=== PATIENT | male | born 1970 | race Caucasian/White ===

== ENCOUNTER 2017-02-16 07:13 | Inpatient (IN) | payer OTHER ==
[~2017-02-16] VITALS: Ht 185.4 cm; Wt 102.1 kg
--- NOTE | 2017-02-16 10:13 | NUR ---
Intake Assessment; Patient is a 47 year old male, AOX4, presented to [facility] to detoxify from ETOH. Patient is from [place], [place] and arrived in intake office at approximately 0900. He is the primary source of information. Patient is admitted under the care of Dr. Haney to room 320. Patient appears anxious, with flushed face, tremors to touch. Patients vital signs are as follows; BP 140/93, Temp 98.0, respirations 18, Spo2 96%. Patient denies pain at the moment but verbalized that he currently experience intermittent nausea and stomach cramps. Educated patient regarding hospital/unit protocols and policies, verbalized understanding. Further assessment and interview to be done when patient is up on the unit.
[2017-02-16 11:00] VITALS: BP 140/93
[2017-02-16 11:09] LABS: *AMPHETAMINE, URINE NEGATIVE (NEGATIVE); *BARBITURATE, URINE NEGATIVE (NEGATIVE); *CANNABINOID, URINE NEGATIVE (NEGATIVE); *COCCAINE, URINE NEGATIVE (NEGATIVE); *OPIATE, URINE NEGATIVE (NEGATIVE); *PHENCYCLIDINE SCREEN,URINE NEGATIVE (NEGATIVE)
[2017-02-16] MEDS ORDERED: BENA20TA2 PO (11:16)
[2017-02-16] MEDS ORDERED: MULT-1045 PO (11:16)
[2017-02-16] MEDS ORDERED: AMLO5TAB2 PO (11:16)
[2017-02-16] MEDS ORDERED: DISU500T3 PO (11:16)
[2017-02-16 12:00] VITALS: BP 138/92
[2017-02-16 12:05] LABS: BASOPHILS # (AUTO) 0.1 K/uL (0.0-8.0); BASOPHILS % (AUTO) 1.1 % (0.0-2.0); EOSINOPHILS # (AUTO) 0.1 K/uL (0.0-0.7); EOSINOPHILS % (AUTO) 1.9 % (0.0-7.0); HEMATOCRIT 46.7 % (40-50); HEMOGLOBIN 15.6 G/DL (14.0-18.0); LYMPHOCYTES # (AUTO) 1.2 K/UL (0.8-4.8); MEAN CORPUSCULAR HGB CONC 33 g/dL (32.0-37.0); MEAN CORPUSCULAR VOLUME 92.6 FL (82.0-92.0); MONOCYTES # (AUTO) 0.4 K/UL (0.1-1.30); MONOCYTES % (AUTO) 8.7 % (0.0-11.0); NEUTROPHILS # (AUTO) 3.3 K/UL (1.8-8.9); NEUTROPHILS % (AUTO) 64.3 % (38.5-71.5); PLATELET COUNT (AUTO) 174 K/UL (150-450); RED BLOOD CELL COUNT(AUTO) 5.04 MIL/UL (4.7-6.1); WHITE BLOOD COUNT (AUTO) 5.1 K/UL (4.0-11.2)
--- NOTE | 2017-02-16 12:14 | NUR ---
Admission note; Patient is a 47 year old male, AOX4, presented to [facility] to detoxify from ETOH. Patient is from [place], [place] and arrived in intake office at approximately 0900. He is the primary source of information. Patient is admitted under the care of Dr. Haney to room 320. Patient appears anxious, with flushed face, tremors to touch. Patients vital signs are as follows; BP 140/93, Temp 98.0, respirations 18, Spo2 96%. Patient denies pain at the moment but verbalized that he currently experience intermittent nausea and stomach cramps. Educated patient regarding hospital/unit protocols and policies, verbalized understanding. Patient denies any allergies or history of seizures. Discussed substance use history. Patient first started drinking alcohol when he was 16 years old, progressed to daily use when he was 28 years old. He struggled with multiple attempts to sobriety. Patient stated that he was sober for 5 months (2015-early 2016). At this rate he has been drinking for the last 7 months, consuming 750ml of vodka, last consumed today 0700 consumed 300ml of vodka. Discussed medical and psych history. Patient reported history of hypertension, Hepatitis C. Upon skin assessment, psoriasis like red rashes noted on patients lower abdomen and lower extremities. Patient stated he was never diagnosed with psoriasis and states that rashes usually appears with alcohol use. He has never been to detox center /residential treatment before. Patients current CIWA is 5. Patient PCP is Dr. Lee Aleman. Detailed report given to Dr. Lyndon MD to evaluate patient including patients skin. Safety measures in place. Will continue to monitor patient.
--- NOTE | 2017-02-16 12:26 | NUR ---
PRN medication; Patient is complaining of stomach cramps, PRN Bentyl 20mg PO given per MD order. Will continue to monitor patient for effectiveness of medication.
[2017-02-16 12:30] LABS: BILIRUBIN,TOTAL 0.5 mg/dL (0.2-1.0); CREATININE 0.8 mg/dL (0.6-1.3); MAGNESIUM 1.8 mg/dL (1.8-2.4); POTASSIUM 4.4 mmol/L (3.5-5.1); TOTAL PROTEIN, SERUM 8.2 g/dL (6.4-8.2)
--- NOTE | 2017-02-16 13:26 | NUR ---
Re-assessment; Patient stated improvement of stomach cramps. PRN medication is effective.
--- NOTE | 2017-02-16 14:42 | NUR ---
PRN medications; Patient's current CIWA score is 7 manifested by increase in anxiety and agitation, hot and cold sweats, muscle aches, tremors to touch. PRN Ativan 1mg PO given for CIWA >5 and Clonidine 0.1mg PO given anxiety, agitation and bp of 142/101. Will continue to monitor patient.
--- NOTE | 2017-02-16 15:42 | NUR ---
Re-assessment; Patient's current CIWA score is 5 manifested by anxiety, sweats and tremors to touch. PRN medication is effective.
[2017-02-16 16:00] VITALS: BP 123/93
--- NOTE | 2017-02-16 18:07 | NUR ---
End of shift note; Patient is AOX4. Patient is a 47 year old male admitted today for ETOH withdrawals. Patient to start 5 day Ativan taper tomorrow morning. Patient started to show signs and symptoms of withdrawals, PRN Ativan, Bentyl and Clonidine were given all noted to be effective. All safety measures secured. Met all needs.
--- NOTE | 2017-02-16 19:06 | NUR ---
PRN medication; Patient's appears very anxious, showing signs and symptoms of withdrawals manifested by Agitation, tremors, hot and cold sweats, muscle aches. PRN Ativan 1mg PO PRN given for CIWA of 7. Will endorse to night nurse for re-assessment. All safety measures secured.
--- NOTE | 2017-02-16 19:07 | NUR ---
Start of shift note Received report from day shift nurse. Pt is a 47 yo male, A+OX4, presenting to [facility] for ETOH dependence. Pt has NKA, is on Full Code status, and on Regular diet. Pt is on Fall and Seizure precautions. Pt has HX of HTN, Hep C, and Abd. rash. Pt is to start 5 day Ativan taper tomorrow. No s/s of distress noted at this time. Respirations even and unlabored. Will continue to monitor.
[2017-02-16 20:07] VITALS: BP 147/97
[2017-02-17 00:21] VITALS: BP 143/92
--- NOTE | 2017-02-17 02:44 | NUR ---
PRN Ativan 1 mg and Zofran Pt c/o anxiety with CIWA: 7 and nausea and requested for PRN Ativan and Zofran. Medications given and tolerated well. Will reassess within 1 HR. Will continue to monitor.
--- NOTE | 2017-02-17 03:40 | NUR ---
PRN Ativan 1 MG and Zofran Reassessment Medications effective. Pt is resting well in bed. No s/s of ASE/distress noted at this time. Respirations even and unlabored. Will continue to monitor.
[2017-02-17 04:47] VITALS: BP 139/91
--- NOTE | 2017-02-17 06:52 | NUR ---
End of shift note Pt is a 47 yo male, A+OX4, presenting to [facility] for ETOH dependence. Pt has NKA, is on Full Code status, and on Regular diet. Pt is on Fall and Seizure precautions. Pt has HX of HTN, Hep C, and Abd. rash. Pt is to start 5 day Ativan taper today. Pt was given PRN Ativan 1mg and PRN Zofran @0244. Last CIWA: 4 @0400. No s/s of distress noted at this time. Respirations even and unlabored. Will endorse to day shift nurse. Addendum: 02/17/17 at 0713 by MERE STATON LVN Pt slept for a total of 8 HRS.
--- NOTE | 2017-02-17 07:30 | NUR ---
Start of shift note; Received report from night nurse. Patient is a 47 year old male admitted today for ETOH withdrawals. Patient to start 5 day Ativan taper today. Patient reported history hypertension. Patient slept for 8 hours. Patient is on fall and seizure precaution. Bed in lowest position, call light within reach. Will continue to monitor patient.
[2017-02-17 08:00] VITALS: BP 142/98
[2017-02-17 12:00] VITALS: BP 141/88
--- NOTE | 2017-02-17 14:49 | NUR ---
PRN medication; Patient's BP noted to be elevated, 141/101. PRN Clonidine 0.1mg PO given to prevent further increase in BP. Will continue to monitor patient for effectiveness of medication.
--- NOTE | 2017-02-17 15:49 | NUR ---
Re-assessment; Patient's current BP went down to 139/90, PRN Clonidine noted to be effective.
[2017-02-17 16:00] VITALS: BP 139/90
--- NOTE | 2017-02-17 18:12 | NUR ---
End of shift note; Patient is AOX4. Patient is a 47 year old male admitted today for ETOH withdrawals. Patient was started on a 5 day modified Ativan taper, no adverse reactions noted. All safety measures secured. Patient remained compliant with treatment plan and medication regime. Medications were effective in reducing withdrawal symptoms. Patient participated in group therapies and activities. Met all needs.
--- NOTE | 2017-02-17 19:10 | NUR ---
Start of shift note Received report from day shift nurse. Pt is a 47 yo male, A+OX4, presenting to [facility] for ETOH dependence. Pt has NKA, is on Full Code status, and on Regular diet. Pt is on Fall and Seizure precautions. Pt has HX of HTN, Hep C, and Abd. rash. Pt is on 5 day Ativan taper, tolerated well. No s/s of distress noted at this time. Respirations even and unlabored. Will continue to monitor.
[2017-02-17 20:07] VITALS: BP 136/94
--- NOTE | 2017-02-17 22:42 | NUR ---
PRN Motrin and Benadryl Pt c/o toothache and inability to sleep and requested for PRN Motrin and Benadryl. Medications given and tolerated well. Will reassess within 1 HR. Will continue to monitor.
--- NOTE | 2017-02-17 23:40 | NUR ---
PRN Motrin and Benadryl Reassessment Medications effective. Pt is resting well in bed. No s/s of ASE/distress noted at this time. Respirations even and unlabored. Will continue to monitor.
[2017-02-18] VITALS (7 sets, daily range): BP systolic 101–149; BP diastolic 51–105
--- NOTE | 2017-02-18 07:00 | NUR ---
End of shift note Pt is a 47 yo male, A+OX4, presenting to [facility] for ETOH dependence. Pt has NKA, is on Full Code status, and on Regular diet. Pt is on Fall and Seizure precautions. Pt has HX of HTN, Hep C, and Abd. rash. Pt is on 5 day Ativan taper, tolerated well. Pt was given PRN Motrin and Benadryl @2242. Pt slept for a total of 9 HRS. Last CIWA: 2 @0400. No s/s of distress noted at this time. Respirations even and unlabored. Will endorse to day shift nurse.
--- NOTE | 2017-02-18 07:11 | NUR ---
Start of shift note SBAR report rcv'd. Pt was admitted for ETOH dependence. Pt has a PMHx of HTN, hep C and a rash on his abdomen and thigh, with hydrocortisone for treatment. Pt is a full code, on a regular diet, and denies any allergies. Pt is on day 2 of a 5 day ativan taper. Pt is currently resting in bed, pt is on fall and seizure precautions. Pt has no complaints at this time. Will continue to monitor pt. All needs addressed at this time.
[2017-02-18 08:17] LABS: BILIRUBIN,DIRECT 0.2 mg/dL (0.0-0.2); BILIRUBIN,TOTAL 0.8 mg/dL (0.2-1.0); TOTAL PROTEIN, SERUM 7.5 g/dL (6.4-8.2)
--- NOTE | 2017-02-18 09:00 | NUR ---
Medication refusal Pt refused ativan, stated "I don't feel like I need it and I want to go home". Dr Lang is aware. Pt has a CIWA of 1.
--- NOTE | 2017-02-18 13:35 | NUR ---
PRN administration Pt c/o tooth pain 11/14, administered motrin per MD order. Will continue to monitor pt.
--- NOTE | 2017-02-18 14:13 | NUR ---
PRN administration Pt c/o anxiety r/t his discharge, administered PRN vistaril, encouraged pt to ambulate and verbalize his feelings. All other needs addressed. Will continue to monitor pt.
--- NOTE | 2017-02-18 14:35 | NUR ---
Reassessment Pt states that his pain is 1/10 and states that he is comfortable, no further complaints at this time. Will continue to monitor pt.
--- NOTE | 2017-02-18 15:13 | NUR ---
Reassessment Pt states that he feels less anxious, pt states "that medication worked really well, I feel better". Will continue to monitor pt.
[2017-02-18] MEDS ORDERED: GABA-534 PO (16:56)
[2017-02-18] MEDS ORDERED: SERT50TA12 PO (16:56)
[2017-02-18] MEDS ORDERED: HYDR-3895 PO (16:56)
[2017-02-18] MEDS ORDERED: DIPH50CA37 PO (16:56)
[2017-02-18] MEDS ORDERED: AMLO10TA2 PO (16:56)
--- NOTE | 2017-02-18 19:11 | NUR ---
End of shift note Pt was admitted for ETOH dependence. Pt is a full code, on a regular diet, and denies any allergies. Pt has a PMHx of HTN, hep C and a rash on his abdomen and thigh, with hydrocortisone for treatment. Pt's ativan taper was d'c'd per pt request. Pt had two PRN medications, vistaril and motrin, during the shift with effectiveness. Pt states that he feels ready for discharge today. Pt ate 100% of meals, drank 2560ml of fluids, had 4 voids and 1 BM during the shift. All needs addressed at this time. Will endorse SBAR to oncoming shift.
--- NOTE | 2017-02-18 19:15 | NUR ---
Start of Shift Patient Received. Patient is in bed, awake, alert and verbally responsive. Breathing even and non labored. Patient noted to be restless and is verbalizing increased anxiety. Patient is a 47 year old male that was admitted on 02/16/17 for ETOH Dependence and received a 5 day Ativan. Taper has been discontinued and patient is set for discharge tomorrow 02/19/17 to go home. Patient verbalizes no known allergies, wishes to be full code, following a regular diet, placed on fall and seizure precautions. Patient noted with history of Psoriasis and is currently receiving treatment topically. Patient received PRN Motrin and Vistaril with medications noted to be effective. All needs attended to promptly. Will continue plan of care as ordered.
--- NOTE | 2017-02-18 20:10 | NUR ---
PRN Medication Administration Patient noted with elevated BP of 147/102 and pulse of 85. Patient verbalizing increased anxiety and inability of falling asleep. PRN Clonidine, Vistaril, and Benadryl administered as per order. Will continue to monitor for effectiveness of mediation.
--- NOTE | 2017-02-18 21:00 | NUR ---
PRN Medication Reassessment Patient noted in bed watching TV. Blood pressure reassessed and noted as 136/95 and pulse of 88. Patient is able to verbalize medication was effective in minimizing anxiety. Patient states "I just haven't fell asleep only because Im watching this movie. But I will go to bed now." PRN Medications noted to be effective. Will continue to monitor.
[2017-02-19 00:18] VITALS: BP 139/98
[2017-02-19 04:00] VITALS: BP 131/98
--- NOTE | 2017-02-19 07:17 | NUR ---
End of Shift Patient is in bed sleeping but easily aroused to verbal stimuli. Breathing even and non labored. Patient is a 47 year old male that was admitted on 02/16/17 for ETOH Dependence and received a 5 day Ativan. Taper has been discontinued and patient is set for discharge today 02/19/17 to go home. Patient verbalizes no known allergies, full code, regular diet, placed on fall and seizure precautions. Patient noted with history of Psoriasis and is currently receiving treatment topically. Patient received PRN Clonidine, Vistaril and Benadryl with medication noted to be effective. All needs attended to promptly. Will continue plan of care as ordered.
--- NOTE | 2017-02-19 07:18 | NUR ---
Start of Shift Notes: Received patient in his room. Alert and oriented x 4. Verbally responsive. Appears anxious with mild sweats and noted with tremors. Respirations even and unlabored. No SOB noted. Skin warm and dry to touch. Abdomen soft and non-distended with (+) BS in all 4 quadrants. No complains of N/V/D or constipation noted. No complains of abdominal discomfort noted. Bladder non-distended. Voids independently. Ambulatory ad shannon with steady gait. Patient is a 47 year old male admitted for ETOH dependence who will be discharging today. NKA. FULL CODE. Regular diet. On fall and seizure precautions. Educated patient on the discharge process. Patient verbalized good understanding. Will continue to monitor closely.
[2017-02-19 08:00] VITALS: BP 137/98
[2017-02-19 08:29] VITALS: BP 157/118
--- NOTE | 2017-02-19 09:21 | NUR ---
Discharged: Patient left the unit at this time in stable condition. CIWA 2 due to anxiety and fine tremors. Discharge instructions were provided and patient verbalized understanding. Discharge packet was placed inside the duffel bag. Patient's home meds were returned to him. VS stable. Patient was picked up by to be transported home.
== END 2017-02-19 09:21 | disposition home or self-care (01) | DRG 895 ==
LOC: SRC 09:40
PROVIDERS: ADMIT Internal Medicine; ATTEND Internal Medicine
PROC: HZ2ZZZZ Detoxification Services for Substance Abuse Treatment (ICD-10-PCS; principal; 2017-02-16)
PROC: HZ51ZZZ Individual Psychotherapy for Substance Abuse Treatment, Behavioral (ICD-10-PCS; 2017-02-17)
DX: F10.230 Alcohol dependence with withdrawal, uncomplicated (principal); K70.10 Alcoholic hepatitis without ascites; F33.1 Major depressive disorder, recurrent, moderate; Y90.6 Blood alcohol level of 120-199 mg/100 ml; Z81.1 Family history of alcohol abuse and dependence; Z82.49 Family history of ischemic heart disease and other diseases of the circulatory system; L40.9 Psoriasis, unspecified; Z79.899 Other long term (current) drug therapy; I10 Essential (primary) hypertension; Z20.5 Contact with and (suspected) exposure to viral hepatitis
CPT/HCPCS: 36415; 80307; 83690; 83735; 85025; 86580; 87806; A4663; G0480; J3411; Q0162; Q0163

== ENCOUNTER 2017-09-13 16:30 | Inpatient (IN) | payer OTHER ==
[~2017-09-13] VITALS: Ht 193 cm; Wt 113.4 kg
[~2017-09-13 16:30] MED LIST: AMLO10TA2 PO; BENA20TA2 PO; DIPH50CA37 PO; GABA-534 PO; HYDR-3895 PO; MULT-1045 PO; SERT50TA12 PO
--- NOTE | 2017-09-13 17:25 | NUR ---
INTAKE ASSESSMENT Received patient in intake. He is AOX4, stable, and ambulatory. Patient has facial flushing, has poor eye contact, unshaven, appears extremely anxious, agitated, sweaty,nausea, tremors noted on bilateral hands, highly emotional, restless, mood is sad and easily distracted. Patient begins to cry when asked questions. Vital signs 162/102, HR-112, RR-18, SPO2-99%, Temp-98.2, Pain -0/10. Patient brought medications with him from home. Patient reported PMH of HTN and also stated, "I haven't been compliant with my medication." Pt stated, "sometimes I would steal my 's Xanax without her knowing." Explained unit protocols and patient verbalized understanding. Will admit patient upon admission to third floor.
[2017-09-13] MEDS ORDERED: AMLO10TA4 PO (17:26)
[2017-09-13] MEDS ORDERED: lotensin PO (17:26)
--- NOTE | 2017-09-13 17:35 | NUR ---
ADMISSION NOTE STATUS-FULL CODE ALLERGY-NKA HEIGHT-6'4 WEIGHT-250IBS VITAL SIGNS-BP: 162/102, P: 112, R: 18, SPO2: 99%, T: 98.2, PA: 0/10 PCP-James Morgan. Pt is a 47 year old male admitted on 09/13/17 for ETOH withdrawal, arrived on the unit at 1735. Pt has not been able to provide UDS yet. Skin and body check completed; skin intact and no contraband found. Pt is full code, NKA, regular diet and on fall/seizure precautions. Patient reports PMH of HTN. Pt refuses Flu/pneumonia vaccine. Pt brought medications from home. Patient reported he has been to [facility] before in February 2017. Substance use History: ETOH(VODKA)- 750-1000 ml daily for 1 month. Last used today 09/13/17 before admission 0.5L vodka. Patient stated he has been drinking since 18 year old. Upon assessment, pt is AAOx4 and presents with anxiety,agitation, sweats, facial flushing, tremors are noted. His mood is sad and depressed but friendly and cooperative able to make good eye contact. Respirations even and unlabored. Denies SOB or chest pain. Bowel sounds active x 4, abdomen soft. PERRLA. Skin intact, no open wounds noted. Pt denies SI/HI at this time. Patient denies any history of SI/HI. Pt reports being sober for 4 months from 2016 to 2016 then relapsed in 2017. Longest period of sobriety is 11 months in 2012. Pt states, "I'm tired of trying on my own. I can't do this anymore alone. I am at this point I really need some help. This time, I am serious." Pt states he is ready to receive outside help and is motivated to stay sober. Pt oriented to room and encouraged to notify staff with any concerns. Safety measures in place. Call light within reach, side rails up x 2, bed locked and in low position. Will continue to monitor.
[2017-09-13] MEDS ORDERED: LOPERAMIDE HCL 2 MG CAPSULE PO PRN ×2 (18:00)
[2017-09-13] MEDS ORDERED: MIRALAX 17 GM POWD.PACK PO PRN (18:00)
[2017-09-13] MEDS ORDERED: LORAZEPAM 1 MG TABLET PO PRN ×2 (18:00)
[2017-09-13] MEDS ORDERED: THIAMINE HCL 200 MG/2 ML VIAL IM ONE (18:00)
[2017-09-13] MEDS ORDERED: LORAZEPAM 2 MG/1 ML VIAL IM PRN (18:00)
[2017-09-13] MEDS ORDERED: hydrALAZINE HCL 50 MG TABLET PO PRN (18:00)
[2017-09-13] MEDS ORDERED: ACETAMINOPHEN 325 MG TABLET PO PRN (18:00)
[2017-09-13] MEDS ORDERED: MAGNESIUM HYDROXIDE 30 ML LIQUID UDC PO PRN (18:00)
[2017-09-13] MEDS ORDERED: MAG HYDROX/AL HYDROX/SIMETH 30 ML LIQUID UDC PO PRN (18:00)
[2017-09-13] MEDS ORDERED: IBUPROFEN 400 MG TABLET PO PRN (18:00)
[2017-09-13] MEDS ORDERED: ONDANSETRON 4 MG/2 ML VIAL IM PRN (18:00)
[2017-09-13 18:37] LABS: BASOPHILS # (AUTO) 0.1 K/uL (0.0-8.0); BASOPHILS % (AUTO) 2.4 % (0.0-2.0); EOSINOPHILS % (AUTO) 0.7 % (0.0-7.0); HEMATOCRIT 46.2 % (36.7-47.1); HEMOGLOBIN 15.8 g/dL (12.5-16.3); LYMPHOCYTES # (AUTO) 1.3 K/uL (20.0-40.0); LYMPHOCYTES % (AUTO) 24.6 % (20.5-51.5); MEAN CORPUSCULAR HEMOGLOBIN 30.2 uug (23.8-33.4); MEAN CORPUSCULAR HGB CONC 34 g/dL (32.5-36.3); MEAN CORPUSCULAR VOLUME 88.5 fL (73.0-96.2); MONOCYTES # (AUTO) 0.3 K/uL (2.0-10.0); MONOCYTES % (AUTO) 6.2 % (0.0-11.0); NEUTROPHILS # (AUTO) 3.6 K/uL (1.8-8.9); NEUTROPHILS % (AUTO) 66.1 % (38.5-71.5); PLATELET COUNT (AUTO) 218 K/uL (152-348); RED BLOOD CELL COUNT(AUTO) 5.22 MIL/uL (4.06-5.63); WHITE BLOOD COUNT (AUTO) 5.4 K/uL (3.6-10.2)
[2017-09-13 18:43] LABS: BILIRUBIN,TOTAL 0.7 mg/dL (0.2-1.0); CREATININE 0.9 mg/dL (0.6-1.3); MAGNESIUM 1.8 mg/dL (1.8-2.4); POTASSIUM 3.7 mmol/L (3.5-5.1); TOTAL PROTEIN, SERUM 8.3 g/dL (6.4-8.2)
--- NOTE | 2017-09-13 19:18 | NUR ---
END SHIFT NOTE Pt presents high anxiety, agitation, restlessness, easily irritable, tremors, facial flushing. Pt is upset about not being able to be medicated before providing urine. Pt blood ETOH is 0.37%; aware. BOUBACAR noted 10, VS WNL. Awaiting for UDS sample. Encouraged pt to increase fluids. Endorsement given to plant operator/shift supervisor nurse. Safety measures in place.
[2017-09-13 20:00] VITALS: BP 127/82
--- NOTE | 2017-09-13 20:00 | NUR ---
START OF SHIFT NOTE RECEIVED REPORT FROM DAY SHIFT NURSE. PATIENT IS A 47 YEAR OLD MALE NEWLY ADMITTED FOR ETOH WITHDRAWAL. PATIENT WAS PLACED ON 5 DAY ATIVAN TAPER. SKIN INTACT. PATIENT HAS NOT PROVIDED UA AND WILL FOLLOW UP. NO SEIZURE HISTORY. ALCOHOL LEVEL 0.37 %. RECEIVED PATIENT IN THE ROOM. ALERT AND ORIENTED X 4. PATIENT WITH FLAT AFFECT, SAD, EMOTIONAL, C/O SEVERE ANXIETY 8/10, RESTLESS, PACING AROUND ROOM, BILATERAL HAND TREMORS, FLUSHED FACE AND MYALGIA. ENCOURAGE FLUIDS . SAFETY MEASURES IN PLACE. CALL LIGHT IN REACH. WILL CONTINUE TO MONITOR
[2017-09-13 20:10] LABS: *AMPHETAMINE, URINE NEGATIVE (NEGATIVE); *BARBITURATE, URINE NEGATIVE (NEGATIVE); *CANNABINOID, URINE NEGATIVE (NEGATIVE); *COCCAINE, URINE NEGATIVE (NEGATIVE); *OPIATE, URINE NEGATIVE (NEGATIVE); *PHENCYCLIDINE SCREEN,URINE NEGATIVE (NEGATIVE)
[2017-09-13] MEDS: ONDANSETRON ODT 4 MG TAB.RAPDIS SL PRN (20:22)
--- NOTE | 2017-09-13 20:22 | NUR ---
PRN ZOFRAN SL AND MOTRIN ADMINISTRATION PATIENT C/O NAUSEA BUT NO EMESIS AND GENERALIZED BODY ACHES. WILL MONITOR FOR EFFECTIVENESS
--- NOTE | 2017-09-13 20:52 | NUR ---
PRN NILDA SL RE-ASSESSMENT PATIENT STATES ZOFRAN HELPFUL AND EFFECTIVE. NAUSEA CEASED. WILL CONTINUE TO MONITOR
[2017-09-13] MEDS ORDERED: LORAZEPAM 1 MG TABLET PO SCH (21:00)
--- NOTE | 2017-09-13 21:22 | NUR ---
PRN MOTRIN RE-ASSESSMENT PATIENT IN BED WITH EYES CLOSED. NO FACIAL GRIMACING. WILL CONTINUE TO MONITOR.
--- NOTE | 2017-09-13 21:52 | NUR ---
DELANO TURK RE-ASSESSMENT PATIENT STATES NILDA HELPFUL AND EFFECTIVE. NAUSEA CEASED. WILL CONTINUE TO MONITOR Addendum: 09/14/17 at 0648 by MELISSA SHOOK LVN ERROR: DUPLICATE
[2017-09-14] VITALS: BP 121/76
--- NOTE | 2017-09-14 | NUR ---
CIWA DEFERRED PATIENT IN BED WITH EYES CLOSED. RESPIRATION EVEN AND UNLABORED. WILL CONTINUE TO MONITOR
[2017-09-14 04:00] VITALS: BP 115/78
--- NOTE | 2017-09-14 04:00 | NUR ---
CIWA DEFERRED PATIENT IN BED WITH EYES CLOSED. RESPIRATION EVEN AND UNLABORED. WILL CONTINUE TO MONITOR
--- NOTE | 2017-09-14 07:11 | NUR ---
END OF SHIFT NOTE PATIENT SLEPT 10 HOURS. FLUID INTAKE 800 ML. VOIDED X 1.NO BM. MONITORED PATIENT THROUGHOUT SHIFT. PATIENT IN HIS ROOM MOST OF THE SHIFT. PATIENT WAS SAD, WITHDRAWN , EMOTIONAL AND ANXIOUS , NAUSEATED BUT NO EMESIS, POOR APPETITE BEGINNING OF SHIFT. RELAXATION TECHNIQUE AND POSITIVE ENCOURAGEMENT PROVIDED. MEDICATION TAKEN ORDERED, NO ADVERSE REACTION. PATIENT WAS GIVEN PRN MOTRIN FOR GENERALIZED BODY ACHES AND ZOFRAN SL FOR NAUSEA , EFFECTIVE. LAST CIWA 13. ENCOURAGED FLUIDS. SAFETY MEASURES IN PLACE. CALL LIGHT IN REACH. WILL CONTINUE TO MONITOR
--- NOTE | 2017-09-14 07:50 | NUR ---
START OF SHIFT Received report from night nurse, 47 year old male admitted for ETOH(VODKA) withdrawal. Patient reported PMH of Hypertension. Per endorsement patient received PRN Motrin/Zofran effective per night nurse, slept for 10 hours, Last CIWA score was-13. Received patient anxious agitated, nauseated, restless. Patient stated "I am not feeling well my anxiety level is so high and feeling very jittery" Patient is due for schedule medications.Educated patient with current plan of care of medications regimen and importance of attending groups and activities with good verbal understanding. Safety measures in place. Will cont with plan of care.
[2017-09-14 08:00] VITALS: BP 143/85
[2017-09-14] MEDS: THIAMINE HCL 100 MG TABLET PO SCH (08:03)
[2017-09-14] MEDS: BENAZEPRIL HCL 10 MG TABLET PO SCH (08:04)
[2017-09-14] MEDS: FOLIC ACID 1 MG TABLET PO SCH (08:04)
[2017-09-14] MEDS: LORAZEPAM 1 MG TABLET PO SCH ×3 (08:04→20:13)
[2017-09-14] MEDS: AMLODIPINE 10 MG TABLET PO SCH (08:04)
[2017-09-14] MEDS: MULTIVITAMINS,THERAPEUTIC TABLET PO SCH (08:08)
[2017-09-14] MEDS ORDERED: TUBERCULIN,PURIF.PROT.DERIV. 5 TU/0.1 ML TEST ID ONE (09:00)
[2017-09-14] MEDS: ESCITALOPRAM OXALATE 10 MG TABLET PO SCH (10:07)
--- NOTE | 2017-09-14 11:55 | NUR ---
PRN ATIVAN Patient reported increased anxiety, agitation, bilateral hand tremors noted, CIWA score noted-12. PRN Ativan 1mg PO administered as ordered. Will cont to monitor and reassess.
[2017-09-14 12:00] VITALS: BP 138/87
--- NOTE | 2017-09-14 12:55 | NUR ---
ATIVAN REASSESSMENT CIWA score noted -10, per patient Ativan was effective in controlling s/s of withdrawal.
[2017-09-14] MEDS: ONDANSETRON ODT 4 MG TAB.RAPDIS SL PRN (14:18)
--- NOTE | 2017-09-14 14:18 | NUR ---
PRN ZOFRAN Patient c/o of nausea not emesis reported by the patient. PRN Zofran 4mg SL administered as ordered. Will cont to monitor.
--- NOTE | 2017-09-14 15:48 | NUR ---
ZOFRAN REASSESSMENT Per patient Zofran was effective nausea improved and no emesis.
[2017-09-14 16:00] VITALS: BP 136/93
--- NOTE | 2017-09-14 18:27 | NUR ---
PRN ATIVAN CIWA score noted 14, patient reported nausea,anxiety, agitation, bilateral hand tremors, restless, pacing in the hallway, hard to sit still. PRN Ativan 2mg PO given as ordered. Will cont to monitor and reassess.
--- NOTE | 2017-09-14 19:06 | NUR ---
END OF SHIFT NOTE Gave report to night nurse, patient presented with anxiety, agitation, tremors, light headed, nausea. Patient was given scheduled medications and PRN Ativan 1mg and Zofran noted to be effective. and patient also receive 2mg Ativan at 1827 endorse to night nurse to reassess the patient. Vital signs WNL. Encourage pt to develop coping skills and utilization of non pharmacological intervention. Patient attended groups and activities. Encourage diversional activities to alleviate anxiety. Patient denies any SI/HI. Safety measures in place. Patient endorsed to night nurse in stable condition.
--- NOTE | 2017-09-14 19:27 | NUR ---
START OF SHIFT NOTE/ATIVAN RE-ASSESSMENT RECEIVED REPORT FROM DAY SHIFT NURSE. PATIENT IS A 47 YEAR OLD MALE ADMITTED FOR ETOH WITHDRAWAL. PATIENT IS ON 2ND DAY OF HIS 5 DAY ATIVAN TAPER. PATIENT WAS GIVEN PRN ATIVAN X 2 FOR ANXIETY AND PRN ZOFRAN. LAST CIWA 14. RECEIVED PATIENT IN THE ROOM. ALERT AND ORIENTED X 4. PATIENT STATES HES STILL ANXIOUS BUT FEELS MUCH BETTER, ATIVAN HELPFUL. PATIENT UNSHAVEN, WITH FLAT AFFECT, FACE IS FLUSHED, SWEATING, ABDOMINAL CRAMPING, BILATERAL HAND TREMOR, IRRITABLE, ANXIOUS AND POOR APPETITE. ENCOURAGED FLUIDS. SAFETY MEASURES IN PLACE. CALL LIGHT IN REACH. WILL CONTINUE TO MONITOR
[2017-09-14 20:00] VITALS: BP 143/92
[2017-09-14] MEDS: diphenhydrAMINE 50 MG CAPSULE PO PRN (20:13)
--- NOTE | 2017-09-14 20:13 | NUR ---
PRN BENADRYL ADMINISTRATION PATIENT REQUESTS FOR SLEEP AID. WILL MONITOR FOR EFFECTIVENESS
--- NOTE | 2017-09-14 21:30 | NUR ---
PRN BENADRYL RE-ASSESSMENT PATIENT IN BED WITH EYES CLOSED. RESPIRATION EVEN AND UNLABORED. SAFETY MEASURES IN PLACE. CALL LIGHT IN REACH. WILL CONTINUE TO MONITOR.
[2017-09-15] VITALS: BP 140/95
--- NOTE | 2017-09-15 | NUR ---
CIWA DEFERRED PATIENT IN BED WITH EYES CLOSED. RESPIRATION EVEN AND UNLABORED. SAFETY MEASURES IN PLACE. CALL LIGHT IN REACH. WILL CONTINUE TO MONITOR.
[2017-09-15 04:00] VITALS: BP 134/92
--- NOTE | 2017-09-15 04:00 | NUR ---
CIWA DEFERRED PATIENT SLEEPING. RESPIRATION EVEN AND UNLABORED. SAFETY MEASURES IN PLACE. CALL LIGHT IN REACH. WILL CONTINUE TO MONITOR.
[2017-09-15 05:08] LABS: HEPATITIS B SURFACE AG Negative (Negative)
--- NOTE | 2017-09-15 07:00 | NUR ---
END OF SHIFT NOTE PATIENT SLEPT 8 HOURS. FLUID INTAKE 675 ML. VOIDED X 2. NO BM. MONITORED PATIENT THROUGHOUT SHIFT. PATIENT COMPLIANT WITH MEDICATION. ATIVAN TAPER TOLERATED AND NO ADVERSE REACTION. PATIENT WAS ANXIOUS AND RESTLESS BEGINNING OF SHIFT. PER PATIENT MEDICATION IS EFFECTIVE IN CONTROLLING HIS WITHDRAWAL SYMPTOMS. PATIENT WAS GIVEN PRN BENADRYL FOR SLEEP. SAFETY MEASURES IN PLACE. CALL LIGHT IN REACH. WILL CONTINUE TO MONITOR. LAST CI.
--- NOTE | 2017-09-15 07:30 | NUR ---
START OF SHIFT Received report from night nurse, 47 year old male admitted for ETOH(VODKA) withdrawal. Patient reported PMH of Hypertension. Per endorsement patient received PRN Benadryl effective per night nurse, slept for 8 hours, Last CIWA score was-11. Received patient anxious agitated,restless. Patient is due for schedule medications. Educated patient with current plan of care of medications regimen and importance of attending groups and activities with good verbal understanding. Safety measures in place. Will cont with plan of care.
[2017-09-15 08:00] VITALS: BP 150/103
[2017-09-15] MEDS: MULTIVITAMINS,THERAPEUTIC TABLET PO SCH (08:09)
[2017-09-15] MEDS: ESCITALOPRAM OXALATE 10 MG TABLET PO SCH (08:10)
[2017-09-15] MEDS: AMLODIPINE 10 MG TABLET PO SCH (08:10)
[2017-09-15] MEDS: FOLIC ACID 1 MG TABLET PO SCH (08:10)
[2017-09-15] MEDS: BENAZEPRIL HCL 10 MG TABLET PO SCH (08:10)
[2017-09-15] MEDS: THIAMINE HCL 100 MG TABLET PO SCH (08:10)
[2017-09-15 08:14] LABS: BILIRUBIN,DIRECT 0.2 mg/dL (0.0-0.2); BILIRUBIN,TOTAL 1.1 mg/dL (0.2-1.0); CREATININE 0.9 mg/dL (0.6-1.3); MAGNESIUM 1.9 mg/dL (1.8-2.4); TOTAL PROTEIN, SERUM 7.5 g/dL (6.4-8.2)
[2017-09-15] MEDS ORDERED: LORAZEPAM 1 MG TABLET PO SCH ×2 (09:00→21:00)
[2017-09-15] MEDS ORDERED: DICYCLOMINE HCL 20 MG TABLET PO PRN (11:00)
[2017-09-15] MEDS ORDERED: FAMOTIDINE 20 MG TABLET PO PRN (11:00)
[2017-09-15 12:00] VITALS: BP 157/104
[2017-09-15] MEDS: LORAZEPAM 1 MG TABLET PO SCH ×2 (12:19→16:06)
--- NOTE | 2017-09-15 12:19 | NUR ---
PRN BENTYL/PEPCID Patient was c/o of stomach cramps and dyspepsia. PRN Pepcid 20mg PO and Bentyl 20mg PO given as ordered. Will cont to monitor and reassess.
--- NOTE | 2017-09-15 12:49 | NUR ---
PRN HYDRALAZINE Patient's blood pressure noted 157/104, HR-105. PRN Hydralazine 50mg PO given as ordered. Will cont to monitor and reassess.
--- NOTE | 2017-09-15 13:19 | NUR ---
BIA RUSHING REASSESSMENT Patient reported medications was effective stomach cramps and dyspepsia subsided.
--- NOTE | 2017-09-15 13:49 | NUR ---
HYDRALAZINE REASSESSMENT Patient's blood pressure noted 122/85, HR-99, Hydralazine was effective. Patient is in stable condition.
[2017-09-15 16:00] VITALS: BP 136/92
--- NOTE | 2017-09-15 16:53 | NUR ---
CARE ENDORSED All pertinent information given and care endorsed to nurse in charge.
--- NOTE | 2017-09-15 17:00 | NUR ---
ENDORSEMENT ENDORSEMENT RECEIVED FROM OFF DUTY NURSE, WILL CONTINUE PLAN OF CARE.
--- NOTE | 2017-09-15 17:40 | NUR ---
ZOFRAN PRN 4MG SL ZOFRAN GIVEN FOR REPORTS OF NAUSEA, WILL REASSESS
[2017-09-15] MEDS: ONDANSETRON ODT 4 MG TAB.RAPDIS SL PRN (17:49)
--- NOTE | 2017-09-15 18:24 | NUR ---
END OF SHIFT : PATIENT IS A 47 YR OLD MALE ADMITTED TO [facility] ON 09/13/17 FOR A MEDICALLY SUPERVISED DETOX FROM ALCOHOL. PRN MEDS GIVEN THIS SHIFT : PEPCID 20MG PO, HYDRALAZINE 50MG PO, BENTYL 20MG PO AND ZOFRAN 4MG SL. PATIENT HAD A FLUID INTAKE THIS SHIFT OF 2500ML 4 VOIDS AND 2 BM. PATIENT APPEARS RESTLESS AND FLUSHED AND HAS OCCASIONAL NAUSEA HELPED BY ZOFRAN. PATIENT ATTENDED GROUPS TODAY AND IS INTERACTING WITH HIS PEERS. LAST CIWA 13 @1600. CONTINUE TO FOLLOW MD PLAN OF CARE.
--- NOTE | 2017-09-15 18:40 | NUR ---
PRN REASSESS PRN 4MG SL ZOFRAN EFFECTIVE, NAUSEA CEASED
--- NOTE | 2017-09-15 19:09 | NUR ---
Start of shift note Received report from day shift nurse. Pt is a 47 yo male, A+Ox4, presenting to [facility] for ETOH withdrawal. Pt noted with agitation, restlessness, anxiety, and tremors. Pt has HX of HTN which will be monitored during shift. Pt is on 5 day Ativan taper, tolerated well. Will continue to monitor.
[2017-09-15 20:07] VITALS: BP 149/102
[2017-09-15] MEDS: diphenhydrAMINE 50 MG CAPSULE PO PRN (20:13)
--- NOTE | 2017-09-15 20:13 | NUR ---
PRN Benadryl Pt c/o inability to sleep and requested for PRN Benadryl. Medication given and tolerated well. Will reassess within 1 HR. Will continue to monitor.
[2017-09-15] MEDS ORDERED: BENAZEPRIL HCL 10 MG TABLET PO SCH (21:00)
--- NOTE | 2017-09-15 21:10 | NUR ---
PRN Benadryl Reassessment Medication effective. Pt is resting well in bed. No s/s of ASE noted at this time. Respirations even and unlabored. Will continue to monitor.
[2017-09-16 00:45] VITALS: BP 132/87
[2017-09-16 04:28] VITALS: BP 137/89
--- NOTE | 2017-09-16 07:00 | NUR ---
End of shift note Pt was continuously noted with agitation, restlessness, and anxiety. Pt remained in room for entire shift. Pt was given PRN Praveen @2012. Pt slept for a total of 9 HRS. Last CIWA: 10 @0400. Respirations even and unlabored. Will endorse to day shift nurse.
--- NOTE | 2017-09-16 07:35 | NUR ---
START OF SHIFT Rcvd endorse from ongoing nurse, client is in room, he is a/o to name, place, and situation. He presents with anxious mood, flat affect, gross tremors, clammy skin, flushed face, and difficulty concentrating, difficulty staying still, and loud voice. Client reports abdominal cramp, headache, feeling of panic, decreased appetite, restless legs, and fatigue. Encourage client to increase PO fluid as tolerated to facilitate detox. Encourage client to attend group therapy. PRN Benadryl 50mg PO for inability to eleep, client slept 9 hrs. Client is on 5 day Ativan taper (day 3). Last CIWA 10 @ 0400. Call light within reach.
[2017-09-16 08:08] VITALS: BP 123/89
[2017-09-16] MEDS: ESCITALOPRAM OXALATE 10 MG TABLET PO SCH (08:25)
[2017-09-16] MEDS: LORAZEPAM 1 MG TABLET PO SCH ×2 (08:25→14:54)
[2017-09-16] MEDS: BENAZEPRIL HCL 20 MG TABLET PO SCH (08:25)
[2017-09-16] MEDS: FOLIC ACID 1 MG TABLET PO SCH (08:26)
[2017-09-16] MEDS: AMLODIPINE 10 MG TABLET PO SCH (08:26)
[2017-09-16] MEDS: THIAMINE HCL 100 MG TABLET PO SCH (08:26)
[2017-09-16] MEDS: MULTIVITAMINS,THERAPEUTIC TABLET PO SCH (08:26)
--- NOTE | 2017-09-16 08:30 | NUR ---
Zero induration noted @ R forearm PPD test site.
[2017-09-16 12:30] VITALS: BP 113/82
[2017-09-16 16:00] VITALS: BP 132/88
--- NOTE | 2017-09-16 18:53 | NUR ---
END OF SHIFT Endorse to incoming nurse, client is in room, he is a/o x 4. He continues to present with anxious mood, flat affect, gross tremors, clammy skin, flushed face, abdominal cramps, headache, feeling of panic, decreased appetite, restless legs, and fatigue. adequate PO fluid intake 2400mL, void x 4, stool x 1. Consumes 50% of meals. Client was not compliant with group therapy d/t above withdrawal symptoms. Last CIWA 15 @ 1600. Call light within reach.
--- NOTE | 2017-09-16 19:08 | NUR ---
Start of shift note Received report from day shift nurse. Pt is a 47 yo male, A+Ox4, presenting to [facility] for ETOH withdrawal. Pt noted to be tremulous, anxious, agitated, and restless. Pt has HX of HTN which will be monitored during shift. Pt is on 5 day Ativan taper, tolerated well. Will continue to monitor.
[2017-09-16] MEDS: diphenhydrAMINE 50 MG CAPSULE PO PRN (20:14)
--- NOTE | 2017-09-16 20:14 | NUR ---
PRN Benadryl Pt c/o inability to sleep and requested for PRN Benadryl. Medication given and tolerated well. Will reassess within 1 HR. Will continue to monitor.
[2017-09-16 20:37] VITALS: BP 133/95
[2017-09-16] MEDS ORDERED: LORAZEPAM 1 MG TABLET PO SCH (21:00)
[2017-09-17 00:42] VITALS: BP 115/84
[2017-09-17 04:05] VITALS: BP 128/89
--- NOTE | 2017-09-17 06:48 | NUR ---
End of shift note Pt was continuously noted with agitation, restlessness, and anxiety. Pt remained in room for majority of shift except to get food from kitchen. Pt is on 5 day Ativan taper, tolerated well. Pt was given PRN Praveen @2013. Pt slept for a total of 9 HRS. Last CIWA: 8 @0400. Respirations even and unlabored. Will endorse to day shift nurse.
--- NOTE | 2017-09-17 07:30 | NUR ---
START OF SHIFT Rcvd endorse from ongoing nurse, client is in room, he is a/o X 4. He presents with anxious mood, agitated, flat affect, gross tremors, clammy skin, flushed face, restless, and using a loud voice. Client reports anxiety, a sense of panic, headache, decreased appetite, and fatigue. Encourage client to increase PO fluid as tolerated to facilitate detox. Encourage client to attend group therapy. PRN Benadryl 50mg PO for inability to sleep, client slept 9 hrs. Client is on 5 day Ativan taper (day 4). Last CIWA 8 @ 0400. Call light within reach.
[2017-09-17] MEDS: THIAMINE HCL 100 MG TABLET PO SCH (08:53)
[2017-09-17] MEDS: FOLIC ACID 1 MG TABLET PO SCH (08:53)
[2017-09-17] MEDS: AMLODIPINE 10 MG TABLET PO SCH (08:53)
[2017-09-17] MEDS: ESCITALOPRAM OXALATE 10 MG TABLET PO SCH (08:53)
[2017-09-17] MEDS: MULTIVITAMINS,THERAPEUTIC TABLET PO SCH (08:53)
[2017-09-17] MEDS: BENAZEPRIL HCL 20 MG TABLET PO SCH (08:54)
[2017-09-17 08:56] VITALS: BP 125/87
[2017-09-17] MEDS ORDERED: LORAZEPAM 1 MG TABLET PO SCH (09:00)
[2017-09-17 12:50] VITALS: BP 127/89
--- NOTE | 2017-09-17 15:38 | NUR ---
AMA: Client stated the he was not ready. Client was educated about the risks and consequences of leaving AMA, client verbalized understanding but still requested to leave. Multiple staff members spoke with client without any success. VS are WNL, client denies any suicidal/homicidal ideations, skin intact, Dr. Lang notified. Client was given a list of community resources in case he is in need of help. All belongings returned to client, he left the unit at [id number].
[2017-09-18] MEDS ORDERED: LORAZEPAM 1 MG TABLET PO SCH (09:00)
[2017-09-18] MEDS ORDERED: ACAMPROSATE CALCIUM 333 MG TABLET.DR PO ONE (09:00)
== END 2017-09-17 15:38 | disposition left against medical advice (07) | DRG 894 ==
LOC: SRC 16:30
PROVIDERS: ADMIT Internal Medicine; ATTEND Internal Medicine
PROC: HZ2ZZZZ Detoxification Services for Substance Abuse Treatment (ICD-10-PCS; principal; 2017-09-13)
PROC: HZ31ZZZ Individual Counseling for Substance Abuse Treatment, Behavioral (ICD-10-PCS; 2017-09-16)
DX: F10.232 Alcohol dependence with withdrawal with perceptual disturbance (principal); E87.2 Acidosis; I15.9 Secondary hypertension, unspecified; K70.10 Alcoholic hepatitis without ascites; E66.9 Obesity, unspecified; G89.29 Other chronic pain; Y90.8 Blood alcohol level of 240 mg/100 ml or more; Z68.30 Body mass index [BMI] 30.0-30.9, adult; Z81.1 Family history of alcohol abuse and dependence; Z82.49 Family history of ischemic heart disease and other diseases of the circulatory system; Z87.891 Personal history of nicotine dependence; E78.5 Hyperlipidemia, unspecified
CPT/HCPCS: 36415; 70030-TC; 80307; 83735; 85025; 86580; 86592; 86705; 86803; 87340; 87806; 93005; G0480; Q0162; Q0163